=== PATIENT | female | born 1955 | race Caucasian/White ===

== ENCOUNTER 2024-02-21 07:02 | Inpatient (IN) | payer OTHER ==
[~2024-02-21] VITALS: Ht 162.6 cm; Wt 68.7 kg
[~2024-02-21 07:02] MED LIST: ASPI81CH PO; CELE200 PO; Epipen0.3 MG/0.3 IM; LOSHYD PO; Pepcid20 MG PO
[2024-02-21 07:58] LABS: BASOPHILS ABSOLUTE AUTO 0.07 K/mm3 (0.00-0.23); BASOPHILS PERCENT AUTO 1 % (0-2); EOSINOPHILS ABSOLUTE AUTO 0.14 K/mm3 (0.00-0.68); EOSINOPHILS PERCENT AUTO 1 % (0-6); Hematocrit 44.2 % (33.0-51.0); Hemoglobin 14.9 g/dL (11.5-16.0); IMMATURE GRAN ABSOLUTE AUTO 0.03 K/mm3 (0.00-0.10); IMMATURE GRAN PERCENT AUTO 0 % (0-1); LYMPHOCYTES ABSOLUTE AUTO 2.35 K/mm3 (0.84-5.20); LYMPHOCYTES PERCENT AUTO 22 % (21-46); MONOCYTES ABSOLUTE AUTO 0.77 K/mm3 (0.16-1.47); MONOCYTES PERCENT AUTO 7 % (4-13); Mean Corpuscular HGB 28.7 pg (26.0-34.0); Mean Corpuscular HGB Conc 33.7 g/dL (31.5-36.5); Mean Corpuscular Volume 85 fL (80-100); Mean Platelet Volume 8.6 fL (9.1-12.4); NEUTROPHILS ABSOLUTE AUTO 7.13 K/mm3 (1.96-9.15); NEUTROPHILS PERCENT AUTO 68 % (41-73); Platelet Count 364 K/mm3 (150-400); RDW Standard Deviation 37.6 fL (35.1-46.3); Red Blood Cell Count 5.19 M/mm3 (3.80-5.20); White Blood Cell Count 10.49 K/mm3 (4.00-11.30)
[2024-02-21 08:09] LABS: Base Excess Venous 9.4 mmol/L; Bicarbonate Venous 31.9 mmol/L (24.0-30.0); pH Blood Venous 7.47 (7.34-7.37)
[2024-02-21] MEDS ORDERED: OLMESARTAN-HCT1 EAC5 PO (08:18)
[2024-02-21] MEDS ORDERED: MELO7.5 PO (08:18)
[2024-02-21 08:31] LABS: Albumin, Blood 3.5 g/dL (3.4-5.0); Albumin/Globulin Ratio 0.8 (0.8-1.8); Bilirubin, Total 0.8 mg/dL (0.1-1.0); Bun/Creatinine Ratio 10.9 (12.0-20.0); Calcium, Blood 10.6 mg/dL (8.5-10.1); Creatinine, Blood 0.46 mg/dL (0.40-1.00); Globulin, Blood 4.3 g/dL (2.2-4.0); Magnesium, Blood 1.8 mg/dL (1.6-2.4); Potassium, Blood 3.3 mmol/L (3.5-5.5); Total Protein, Blood 7.8 g/dL (6.4-8.2)
[2024-02-21] MEDS ORDERED: NS 1,000 ML IV SCH ×2 (08:40→09:55)
[2024-02-21] MEDS ORDERED: Potassium Chl 10MEQ/Water100ML 100 ML IV SCH (08:45)
[2024-02-21 08:48] LABS: Adenovirus Not Detected (NOT DETECT); Coronavirus 229E Not Detected (NOT DETECT); Coronavirus HKU1 Not Detected (NOT DETECT); Coronavirus NL63 Not Detected (NOT DETECT); Coronavirus OC43 Not Detected (NOT DETECT); Human Metapneumovirus Not Detected (NOT DETECT); Human Rhinovirus/Enterovirus Not Detected (NOT DETECT); Influenza A/2009-H1 Not Detected (NOT DETECT); Influenza A/H1 Not Detected (NOT DETECT); Influenza A/H3 Not Detected (NOT DETECT); Influenza B Not Detected (NOT DETECT); Parainfluenza Virus 1 Not Detected (NOT DETECT); Parainfluenza Virus 2 Not Detected (NOT DETECT); Parainfluenza Virus 3 Not Detected (NOT DETECT); Parainfluenza Virus 4 Not Detected (NOT DETECT); Respiratory Syncytial Virus Not Detected (NOT DETECT); SARS-Cov-2 (COVID-19), BioFire Not Detected (NOT DETECT)
[2024-02-21 08:49] LABS: Bordetella pertussis Not Detected (NOT DETECT); Chlamydophila pneumoniae Not Detected (NOT DETECT); Mycoplasma pneumoniae Not Detected (NOT DETECT)
[2024-02-21] MEDS ORDERED: FLU VACC TS2024-25(6MOS UP)/PF 45 MCG/0.5 ML SYRINGE IM SCH (09:55)
[2024-02-21] MEDS ORDERED: CefTRIAXone Sodium 1,000 MG in NS 100 ML IV SCH (10:30)
[2024-02-21] MEDS ORDERED: Azithromycin 500 MG in NS 250 ML IV SCH (10:30)
[2024-02-21 11:30] VITALS: BP 119/76
--- NOTE | 2024-02-21 14:02 | NUR ---
ADMIT NOTE PT ARRIVED TO PCU FROM ED VIA ED STRETCHER AT APPROX 1115. PT WAS SLID BY 4 STAFF FROM ED STRETCHER TO PCU BED. PT HX OF ALS. PT A&OX4. SP02>90% ON RA, SHALLOW, WEAK BREATHING. ACCOMPANIED BY RT AND BIPAP. PT REFUSES TO WEAR BIPAP AT THIS TIME. WEAK COUGH, DIFFICULTY CLEARNING SECRETIONS. SUCTION SET UP AT BEDSIDE, W/IN PT REACH. TELEMETRY W/ NSR/SINUS TACH, HR 90'S-100'S. PT DENIES PAIN. PT STATES HAS TO VOID BUT UNABLE. BLADDER SCAN SHOWS 211. UP TO BSC HEAVY 2P W/ NO SUCCESS. PURWIK TO SUCTION. TO BRING IN 'CHAIR' THAT HELPS PT FEEL MORE COMFORTABLE TO VOID. ABX INFUSING PER EMAR. FLUIDS INFUSING PER EMAR. COCCYX RED BUT BLANCHABLE. Q2H REPOSITTIONING. ORIENTED TO LIGHT, CALL LIGHT.
--- NOTE | 2024-02-21 15:43 | NUR ---
Upon receiving a referral for spiritual care, I visited the patient. Her spouse, Yosef is bedside. She tells me about her ALS diagnosis (2 yrs ago) and the emotional, mental and physical strain of working through this madical path that she is on. She states that she will need to use the bedside commode but wants to wait until her spouse returns (He stepped out to get his phone in the car). She tells me their family, their alethea and the plan of care for this hospital admission. When Yosef returns, I provided prayer for them both and then exited the patient's room. Patient and Yosef voiced appreciation for the visit and should signs of greater peace.
--- NOTE | 2024-02-21 18:06 | NUR ---
shift summary NO ACUTE CHANGES SINCE CARE ASSUMPTION. VSS. BROUGHT IN PERSONAL CHAIR DEVICE TO HELP PT USE RESTROOM- PT ABLE TO VOID USING IT MULTPLE TIMES. IN ROOM MOST OF SHIFT. BROUGHT IN EMOTIONAL SUPPORT DOG. PT IN ROOM WATCHING TV. CALL LIGHT IN REACH.
[2024-02-21 19:41] VITALS: BP 145/78
[2024-02-21] MEDS ORDERED: Lactobacil 2-S.Thermo-Bifido 1 1 Cap PO SCH (21:00)
--- NOTE | 2024-02-21 21:40 | NUR ---
MD NOTIFICATION PT APPEARS TO HAVE RED PATCHY RASH EXTENDING FROM NECK TO CHEST AND BACK. NEW IV ABX STARTED TODAY, AZITHROMYCIN AND ROCEPHIN. DR. NAYLOR ASSESSED AT BEDSIDE. PLAN TO MONITOR FOR NOW. PT IS NOT EXPERIENCING ANY NEW SYMPTOMS WITH RASH. PT STATES SHE NORMALLY HAS THE ITCHY RASH AROUND HER NECK.
[2024-02-22] VITALS (7 sets, daily range): BP systolic 116–139; BP diastolic 59–84
[2024-02-22 04:52] LABS: BASOPHILS ABSOLUTE AUTO 0.09 K/mm3 (0.00-0.23); BASOPHILS PERCENT AUTO 1 % (0-2); EOSINOPHILS ABSOLUTE AUTO 0.15 K/mm3 (0.00-0.68); EOSINOPHILS PERCENT AUTO 1 % (0-6); Hematocrit 44.7 % (33.0-51.0); Hemoglobin 14.4 g/dL (11.5-16.0); IMMATURE GRAN ABSOLUTE AUTO 0.06 K/mm3 (0.00-0.10); IMMATURE GRAN PERCENT AUTO 1 % (0-1); LYMPHOCYTES PERCENT AUTO 27 % (21-46); MONOCYTES ABSOLUTE AUTO 0.82 K/mm3 (0.16-1.47); MONOCYTES PERCENT AUTO 8 % (4-13); Mean Corpuscular HGB 28.6 pg (26.0-34.0); Mean Corpuscular HGB Conc 32.2 g/dL (31.5-36.5); Mean Corpuscular Volume 89 fL (80-100); Mean Platelet Volume 8.3 fL (9.1-12.4); NEUTROPHILS ABSOLUTE AUTO 6.77 K/mm3 (1.96-9.15); NEUTROPHILS PERCENT AUTO 63 % (41-73); Platelet Count 341 K/mm3 (150-400); RDW Coefficient Variation 12.2 % (11.7-14.2); RDW Standard Deviation 39.4 fL (35.1-46.3); Red Blood Cell Count 5.03 M/mm3 (3.80-5.20); White Blood Cell Count 10.79 K/mm3 (4.00-11.30)
[2024-02-22 05:21] LABS: Bun/Creatinine Ratio 9.4 (12.0-20.0); Calcium, Blood 9.3 mg/dL (8.5-10.1); Creatinine, Blood 0.43 mg/dL (0.40-1.00); Potassium, Blood 3.4 mmol/L (3.5-5.5)
[2024-02-22] MEDS ORDERED: Enoxaparin 40 MG/0.4 ML SYR SC SCH (09:00)
[2024-02-22] MEDS ORDERED: Potassium Chloride 20 MEQ TabCR PO ONE (09:05)
[2024-02-22] MEDS ORDERED: Losartan Potassium 50 MG Tab PO SCH (13:00)
[2024-02-22] MEDS ORDERED: Guaifenesin/Dextromethorphan Syrup 5 ML UDC PO PRN (13:00)
--- NOTE | 2024-02-22 18:37 | NUR ---
END OF SHIFT PT A&O X4. VSS. SPO2 > 92% ON 1L NC, TRANSITIONED TO BIPAP THIS MORNING PER PT PREFERENCE, THEN BACK TO NC & THEN RA W/ PT TOLERATING WELL. THIS AM, PT REPORTING MUCUS GETTING STUCK IN HER THROAT & BEING UNABLE TO CLEAR IT. SPO2 > 95% & PT W/ FREQUENT WEAK COUGH, ATTEMPTING TO CLEAR. MD NOTIFIED & W/ NEW ORDER FOR GUAIFENESIN (SEE ORDERS). PT REPORTING IMPROVEMENT AFTER MEDICATION. MONITOR SHOWING SR-ST, HR 80s-110s W/ EPISODE OF BRIEF, NONSUSTAINED INCREASE TO 170s WHILE LAYING IN BED COUGHING TODAY. PT UNABLE TO MOVE BLE. PT SPOUSE AT BEDSIDE ASSISTING PT & STAFF W/ GETTING PT UP W/ THEIR HOME SEAT LIFT TO TAKE HER FROM THE BED TO THE BATHROOM. PT USING RESTROOM FREQUENTLY T/O SHIFT.
[2024-02-22] MEDS ORDERED: GuaiFENesin 600 MG TabCR PO SCH (21:00)
[2024-02-23 04:02] VITALS: BP 143/63
[2024-02-23 04:16] LABS: BASOPHILS ABSOLUTE AUTO 0.06 K/mm3 (0.00-0.23); BASOPHILS PERCENT AUTO 1 % (0-2); EOSINOPHILS ABSOLUTE AUTO 0.19 K/mm3 (0.00-0.68); EOSINOPHILS PERCENT AUTO 2 % (0-6); Hematocrit 36.5 % (33.0-51.0); Hemoglobin 11.7 g/dL (11.5-16.0); IMMATURE GRAN ABSOLUTE AUTO 0.06 K/mm3 (0.00-0.10); IMMATURE GRAN PERCENT AUTO 1 % (0-1); LYMPHOCYTES ABSOLUTE AUTO 3.54 K/mm3 (0.84-5.20); LYMPHOCYTES PERCENT AUTO 34 % (21-46); MONOCYTES ABSOLUTE AUTO 0.93 K/mm3 (0.16-1.47); MONOCYTES PERCENT AUTO 9 % (4-13); Mean Corpuscular HGB 28.9 pg (26.0-34.0); Mean Corpuscular HGB Conc 32.1 g/dL (31.5-36.5); Mean Corpuscular Volume 90 fL (80-100); Mean Platelet Volume 8.2 fL (9.1-12.4); NEUTROPHILS ABSOLUTE AUTO 5.72 K/mm3 (1.96-9.15); NEUTROPHILS PERCENT AUTO 54 % (41-73); Platelet Count 342 K/mm3 (150-400); RDW Coefficient Variation 12.3 % (11.7-14.2); RDW Standard Deviation 40.8 fL (35.1-46.3); Red Blood Cell Count 4.05 M/mm3 (3.80-5.20)
[2024-02-23 05:08] LABS: Bun/Creatinine Ratio 4.5 (12.0-20.0); Calcium, Blood 8.8 mg/dL (8.5-10.1); Creatinine, Blood 0.45 mg/dL (0.40-1.00); Potassium, Blood 3.4 mmol/L (3.5-5.5)
--- NOTE | 2024-02-23 06:19 | NUR ---
SHIFT SUMMARY PT TOLERATED BIPAP FAIRLY WELL OVERNIGHT. 2 EPISODES OF DESATURATION DOWN TO 70'S WITH BIPAP ON WHILE PATIENT WAS SLEEPING. RECOVERED QUICKLY. PT HAS BEEN OTHERWISE STABLE AND RESTING.
[2024-02-23 07:54] VITALS: BP 121/60
[2024-02-23] MEDS ORDERED: Potassium Chloride 20 MEQ/15 ML UDC PO ONE (08:30)
[2024-02-23] MEDS ORDERED: Losartan Potassium 50 MG Tab PO SCH (09:00)
[2024-02-23] MEDS ORDERED: Meloxicam 7.5 MG Tab PO SCH (09:00)
[2024-02-23 15:42] VITALS: BP 147/72
--- NOTE | 2024-02-23 17:36 | NUR ---
SHIFT SUMMARY PT A&Ox4, CALLS AND COMMUNICATES NEEDS APPROPRIATELY. BP STABLE, SINUS 80'S, DENIES CP/PRESSURE. SpO2> 92% RA, BIPAP AVAPS FOR VENTILATION SUPPORT, DENIES SOB. REPORTS CONGESTIONS, PT WITH VERY WEAK COUGH AND INCREASED RR. PTs ASSISTS PT WITH TRANFERS TO BATHROOM WITH LIFT FROM HOME, CONTINENT OF URIEN AND BOWEL. WHEN PT IS BACK TO BED, AND STAFF MEMBER HELP REPOSITION PT BACK IN BED. NO C/O PAIN. NO OTHER EVENTS, WILL REPORT TO ONCOMING RN.
[2024-02-23 20:09] VITALS: BP 139/73
[2024-02-23 23:52] VITALS: BP 137/64
[2024-02-24 04:30] VITALS: BP 142/65
[2024-02-24 05:19] LABS: Bun/Creatinine Ratio 6.2 (12.0-20.0); Calcium, Blood 9.4 mg/dL (8.5-10.1); Creatinine, Blood 0.48 mg/dL (0.40-1.00); Potassium, Blood 3.3 mmol/L (3.5-5.5)
[2024-02-24] MEDS ORDERED: Potassium Chloride 10 Meq Tablet SA PO ONE (06:15)
--- NOTE | 2024-02-24 06:26 | NUR ---
SHIFT SUMMARY PT HAD AN OVERALL UNEVENTFUL NIGHT. HEMODYNAMICALLY STABLE. UP AND DOWN TO BATHROOM VIA CHAIR LIFT BROUGHT FROM HOME WITH HUSBANDS ASSISTANCE. NO NEW ACUTE EVENTS.
[2024-02-24] MEDS ORDERED: Potassium Chloride 20 MEQ/15 ML UDC PO ONE ×2 (07:40→09:20)
[2024-02-24 08:58] VITALS: BP 141/71
[2024-02-24 11:59] VITALS: BP 141/70
--- NOTE | 2024-02-24 12:53 | NUR ---
MET WITH MARTHA AND HER REECE. WE DISCUSSED HER PROGRESSION OF ALS. HER NEW NEED FOR PRESSURE SUPPORT FROM A DEVICE WHILE SHE SLEEPS. WE DISCUSSED THE IMPORTANCE OF COMPLIANCE WITH USE AND HOW NOT USING IT CAN AFFECT THE BODY SYSTEM A WHOLE INCLUDING ADDED STRAIN TO THE HEART. WE DISCUSSED LOOKING AT DIFFERENT MASK OPTIONS IF SHE IS NOT TOLORATING IT WELL. DISCUSSED CASE WITH BEDSIDE RN AND NECK BAND SETTER.
[2024-02-24 16:02] VITALS: BP 138/74
--- NOTE | 2024-02-24 18:31 | NUR ---
SHIFT SUMMARY: PT IS A&OX4, PLEASANT AND COOPERATIVE WITH CARE. VSS, SR IN THE 80'S, ON 1L NC FOR PT'S COMFORT. USES BIPAP WHILE ASLEEP, PT DID DESAT THIS MORNING TO LOW 80'S, SHE RECOVERED QUICKLY, BUT WILL HAVE SLEEP STUDY TONIGHT. DENIES PAIN. AT BEDSIDE AND ATTENTIVE TO PT T/O SHIFT. TRANSFERS PT WITH HOME LIFT TO , CONTINENT OF BLADDER AND BOWEL. VOIDING FREQUENTLY T/O SHIFT. TOLERATING A HEART HEALTHY DIET, POOR APPETITE. TAKES PILLS WHOLE ONE AT A TIME IF THEY ARE SMALL, OTHERWISE CRUSHED IN YOGURT. PT HAS SHALLOW RESPIRATIONS WITH A WEAK COUGH. PERFORMS MOST CARES FOR PT ALSO HELPS ASSIST STAFF WITH HER CARES. PT IS ABLE TO ADVOCATE NEEDS EFFECTIVELY. BED IN LOWEST POSITION, CALL LIGHT WITHIN REACH.
[2024-02-24 20:14] VITALS: BP 153/82
[2024-02-25 03:59] VITALS: BP 157/75
[2024-02-25 04:33] LABS: Bun/Creatinine Ratio 7.4 (12.0-20.0); Calcium, Blood 9.6 mg/dL (8.5-10.1); Creatinine, Blood 0.54 mg/dL (0.40-1.00); Potassium, Blood 3.6 mmol/L (3.5-5.5)
--- NOTE | 2024-02-25 05:40 | NUR ---
SHIFT SUMMARY PT HAD AN OVERALL UNEVENTFUL NIGHT. SLEEP STUDY DONE WITH A FEW INTERRUPTIONS DUE TO PATIENT WAKING UP TO USE THE RESTROOM. REMAINS HEMODYNAMICALLY STABLE. PATIENT AND BOTH HOPEFUL FOR DISCHARGE TODAY.
[2024-02-25 08:30] VITALS: BP 139/72
[2024-02-25 12:14] VITALS: BP 150/72
[2024-02-25] MEDS ORDERED: ROBITUSSIN DM PO (13:12)
[2024-02-25] MEDS ORDERED: OLME20 PO (13:13)
--- NOTE | 2024-02-25 18:39 | NUR ---
MORNING/DISCHARGE SUMMARY PT IS A&OX4. NO ACUTE CHANGES FROM PREVIOUS ASSESSMENT. PT DENIES PAIN. NEW AVAPS ORDER PLACED, SET UP FOR HOME TONIGHT. DISCHARGE INSTRUCTIONS REVIEWED WITH PT AND SPOUSE. NO QUESTIONS AT THIS TIME. PT DC'D VIA PERSONAL WHEELCHAIR WITH BELONGINGS IN HAND.
== END 2024-02-25 15:37 | disposition home or self-care (01) | DRG 189 ==
LOC: ER 07:02 → PCU 09:49 → ERHOLD 09:49 → PCU 11:44
PROVIDERS: Student in an Organized Health Care Education/Training Program; ADMIT Family Medicine
PROC: 5A09357 Assistance with Respiratory Ventilation, Less than 24 Consecutive Hours, Continuous Positive Airway Pressure (ICD-10-PCS; principal; 2024-02-21)
DX: J96.02 Acute respiratory failure with hypercapnia (principal); G12.21 Amyotrophic lateral sclerosis; E87.1 Hypo-osmolality and hyponatremia; E87.3 Alkalosis; J06.9 Acute upper respiratory infection, unspecified; E87.6 Hypokalemia; I10 Essential (primary) hypertension; E87.8 Other disorders of electrolyte and fluid balance, not elsewhere classified; Z88.0 Allergy status to penicillin; Z88.6 Allergy status to analgesic agent; Z79.1 Long term (current) use of non-steroidal anti-inflammatories (NSAID)
CPT/HCPCS: 0202U; 36415; 71045; 80048; 80053; 82803; 83605; 83735; 84145; 84295; 85025; 87040; 92526; 92610; 93005; 93010; 94640; 94660; 94664; 94762; 96365; 99285-25; A9270; J0456; J0696; J1650; J3480; J7030; J7050